=== PATIENT | female | born 1960 | race Caucasian/White ===

== ENCOUNTER → 2019-08-15 | Outpatient (CLI) | payer BC ==
[~2019-08-15] MED LIST: ALPR0.254 PO; ARIP5TAB13 PO; ASPI-630 PO; BIMA2.5D OP; BRIM5DRO2 OP; DULO60CA45 PO; ESTR1TAB15 PO; HYDR-3164 PO; IRBE1TAB5 PO; METF500T16 PO; MIRA25TA PO; NAPR1TAB21 PO; SIMV40TA18 PO
== END | disposition home or self-care (01) ==
LOC: LAB 13:50
PROVIDERS: ATTEND Obstetrics & Gynecology
DX: Z01.812 Encounter for preprocedural laboratory examination (principal); Z11.59 Encounter for screening for other viral diseases; Z88.2 Allergy status to sulfonamides; Z88.8 Allergy status to other drugs, medicaments and biological substances
CPT/HCPCS: 36415; 87635

== ENCOUNTER 2019-08-18 08:55 | Day surgery (SDC) | payer BC ==
[~2019-08-18 08:55] MED LIST changes: -HYDR-3164 PO; +HYDROmorphone 2 MG/ML VIAL IV PRN; +INSULIN LISPRO 100 UNIT/ML 3ML VIAL for OP,RR ONLY. SQ PRN; +IV RINGERS,LACTATED 1000ML 1,000 ML IV SCH; +MORPHINE SULFATE 2 MG/ML VIAL. IV PRN; +ONDANSETRON PF 4 MG/2 ML VIAL. IV PRN; +PROCHLORPERAZINE 10 MG/2 ML VIAL. IV PRN; +fentaNYL PF VIAL 100 MCG/2 ML VIAL IV PRN
[2019-08-18] MEDS ORDERED: PROPOFOL 10 MG/ML (20ML) VIAL. IV ONE (11:25)
[2019-08-18] MEDS ORDERED: DEXAMETHASONE SOD PHOS 4 MG/ML VIAL ONE (11:25)
[2019-08-18] MEDS ORDERED: fentaNYL PF VIAL 100 MCG/2 ML VIAL ONE (11:25)
[2019-08-18] MEDS ORDERED: ONDANSETRON PF 4 MG/2 ML VIAL. ONE (11:25)
[2019-08-18] MEDS ORDERED: MIDAZOLAM HCL/PF 2 MG/2 ML VIAL. ONE (11:25)
[2019-08-18] MEDS ORDERED: LIDOCAINE 2% PF 5 ML VIAL. ONE (11:25)
[2019-08-18] MEDS ORDERED: HYDROCORTISONE SOD SUCC/PF 100 MG/2 ML VIAL. ONE (11:26)
[2019-08-18] MEDS ORDERED: SEVOFLURANE 31 TO 60 MINUTES. IH ONE (11:55)
--- NOTE | 2019-08-18 12:03 | PDOC ---
BRIEF OPERATIVE NOTE Date: August 18, 2019 Pre-Op Diagnosis PMB with thickened endometrium Post-Op Diagnosis same plus endometrial polyp Procedure Performed h/s D&C with isabel clear system Surgeon Dr. Josie Avilez Anesthesiologist Dr. Palmer Anesthesia Type: General Blood Loss 5cc IV Fluid see anesthesia note Urine Output straight cath prior to procedure Specimens Obtained endometrial currettings Findings small polyp otherwise normal uterine cavity; 6.5-7cm and normal bilateral tubal ostia seen also Complications none Operative Note [id number] JOSIE AVILEZ MD August 18, 2019 12:03
[2019-08-18] MEDS ORDERED: MAG HYDROX/ALUMINUM HYD/SIMETH 30 ML ORAL.SUSP PO PRN (12:15)
[2019-08-18] MEDS ORDERED: 0.9 % SODIUM CHLORIDE 10 ML DISP.SYRIN. IV PRN (12:15)
[2019-08-18] MEDS ORDERED: NALOXONE 0.4 MG/ML VIAL. IV PRN (12:15)
[2019-08-18] MEDS ORDERED: HYDROcodone/APAP 5/325MG 1 TAB TABLET PO PRN (12:15)
[2019-08-18] MEDS ORDERED: diphenhydrAMINE HCL 25 MG CAPSULE PO PRN (12:15)
[2019-08-18] MEDS ORDERED: SIMETHICONE 80 MG TAB.CHEW PO PRN (12:15)
[2019-08-18] MEDS ORDERED: diphenhydrAMINE 50 MG/ML VIAL IV PRN (12:15)
[2019-08-18] MEDS ORDERED: CALCIUM CARBONATE 500 MG TAB.CHEW PO PRN (12:15)
--- NOTE | 2019-08-18 12:16 | CONS ---
DATE OF CONSULTATION: 08/18/2019 PREOPERATIVE DIAGNOSIS: Postmenopausal bleeding with a thickened endometrium on sonogram. POSTOPERATIVE DIAGNOSIS: Postmenopausal bleeding with a thickened endometrium on sonogram with an endometrial polyp. PROCEDURES PERFORMED: Hysteroscopy, D and C with TruClear fluid collection system. SURGEON: Anastasiya Avilez MD HUMAN RESOURCES CONSULTANT: OR personnel. ANESTHESIOLOGIST: Dr. Palmer. ANESTHESIA: General. ESTIMATED BLOOD LOSS: 5 mL. URINE OUTPUT: Straight cath prior to procedure. FLUIDS: Please see anesthesia notes. SPECIMEN OBTAINED: Endometrial curettings. FINDINGS: She had a uterus that sounded to 6.5-7 cm with a small endometrial polyp seen on the right side of the uterine cavity; otherwise, a normal bilateral tubal ostia seen and normal thin atrophic endometrium. COMPLICATIONS: None. DESCRIPTION OF PROCEDURE: This patient was taken to the operating room where general anesthesia was placed. The patient was placed in dorsal lithotomy position in Parvez stirrups. The patient's vagina was prepped and draped in the normal sterile fashion and a straight cath urine was done prior to my arrival. Upon my arrival, a timeout was performed. Once everyone agreed on the patient, the site, the procedure, a weighted speculum was placed in the patient's vagina. A single-tooth tenaculum was used to grasp the anterior lip of the cervix. The Hegar dilators were used to dilate up to an 8, she sounded to 6.5-7 cm. The TruClear clear scope had been primed. It was placed in with the above findings. The small shaver, the thin blade was placed in, window locked and the polyp was removed easily and then a small D and C was done just to make sure we had tissue. At the end, it was a small normal uterine cavity without any abnormalities and the procedure was ended. The scope was removed. The tenaculum was removed. There was no active bleeding. Speculum was removed and the procedure was ended. She is currently being awakened from anesthesia. ANASTASIYA AVILEZ MD DR: BRANDON/saniya JOB#: [id number] / [id number]
[2019-08-18] MEDS ORDERED: HYDR-3164 PO (12:26)
[2019-08-18 12:35] VITALS: BP 138/58
--- NOTE | 2019-08-19 09:57 | OP ---
DATE OF SURGERY: 08/18/2019 PREOPERATIVE DIAGNOSIS: Postmenopausal bleeding with a thickened endometrium on sonogram. POSTOPERATIVE DIAGNOSIS: Postmenopausal bleeding with a thickened endometrium on sonogram with an endometrial polyp. PROCEDURES PERFORMED: Hysteroscopy, D and C with TruClear fluid collection system. SURGEON: Anastasiya Avilez MD MEDICAL MASSAGE THERAPIST: OR personnel. ANESTHESIOLOGIST: Dr. Palmer. ANESTHESIA: General. ESTIMATED BLOOD LOSS: 5 mL. URINE OUTPUT: Straight cath prior to procedure. FLUIDS: Please see anesthesia notes. SPECIMEN OBTAINED: Endometrial curettings. FINDINGS: She had a uterus that sounded to 6.5-7 cm with a small endometrial polyp seen on the right side of the uterine cavity; otherwise, a normal bilateral tubal ostia seen and normal thin atrophic endometrium. COMPLICATIONS: None. DESCRIPTION OF PROCEDURE: This patient was taken to the operating room where general anesthesia was placed. The patient was placed in dorsal lithotomy position in Parvez stirrups. The patient's vagina was prepped and draped in the normal sterile fashion and a straight cath urine was done prior to my arrival. Upon my arrival, a timeout was performed. Once everyone agreed on the patient, the site, the procedure, a weighted speculum was placed in the patient's vagina. A single-tooth tenaculum was used to grasp the anterior lip of the cervix. The Hegar dilators were used to dilate up to an 8, she sounded to 6.5-7 cm. The TruClear clear scope had been primed. It was placed in with the above findings. The small shaver, the thin blade was placed in, window locked and the polyp was removed easily and then a small D and C was done just to make sure we had tissue. At the end, it was a small normal uterine cavity without any abnormalities and the procedure was ended. The scope was removed. The tenaculum was removed. There was no active bleeding. Speculum was removed and the procedure was ended. She is currently being awakened from anesthesia. ANASTASIYA AVILEZ MD DR: BRANDON/saniya JOB#: [id number] / [id number]
--- NOTE | 2019-08-19 17:06 | PATHOLOGY ---
[facility] Accession Number: [id number] . 01 Material submitted: . endometrium - ENDOMETRIAL CURETTINGS . 01 Clinical history: . PMB with thickened endometrium . 02 Diagnosis: Endometrial curettings: - Endometrial polyp with recent stromal hemorrhage. - Atrophic endometrium. (JPM:rodrigo; 08/19/2019) QMS 08/19/2019 0927 Local . 02 Comment: There is no atypia or evidence of malignancy. (JPM:rodrigo; 08/19/2019) . 02 Electronically signed: . Jermaine Joseph MD, Pathologist NPI- [id number] . 01 Gross description: . The specimen is received in formalin, labeled "Zahida Patricio, endometrial curettings" and consists of hemorrhagic pink-hudson tissue measuring 1.1 x 0.8 x 0.2 cm which is entirely submitted in A1. (SDY; 08/18/2019) SYU/SYU 08/18/2019 1510 Local . 02 Pathologist provided ICD-10: N84.0, N85.8 . 02 CPT . 805188 Specimen Comment: A courtesy copy of this report has been sent to [phone] Specimen Comment: 0827 Specimen Comment: Report sent to / DR THOMAS Performed at: 01 [facility] [address], [place] [id number] MD Pedrito Valdovinos MD Phone: [phone] Performed at: 02 [facility] [address] [place], [place] [id number] MD Jermaine Joseph MD Phone: [phone]
== END 2019-08-18 13:00 | disposition home or self-care (01) ==
LOC: SURG 08:55
PROVIDERS: ATTEND Obstetrics & Gynecology
DX: N95.0 Postmenopausal bleeding (principal); N84.0 Polyp of corpus uteri; I10 Essential (primary) hypertension; E78.00 Pure hypercholesterolemia, unspecified; F17.210 Nicotine dependence, cigarettes, uncomplicated; E11.9 Type 2 diabetes mellitus without complications; F41.9 Anxiety disorder, unspecified; F32.9 Major depressive disorder, single episode, unspecified; Z87.39 Personal history of other diseases of the musculoskeletal system and connective tissue; Z98.51 Tubal ligation status; Z79.84 Long term (current) use of oral hypoglycemic drugs
CPT/HCPCS: 58558; 82962; J1100; J1815; J2250; J2405; J2704; J3010; J3490; J1720

== ENCOUNTER → 2019-09-06 | Outpatient (CLI) | payer BC ==
[2019-08-18 12:35] VITALS: BP 138/58
[~2019-09-06] MED LIST changes: +ESTR-113 PO; -ESTR1TAB15 PO; +HYDR-3164 PO; -HYDROmorphone 2 MG/ML VIAL IV PRN; -INSULIN LISPRO 100 UNIT/ML 3ML VIAL for OP,RR ONLY. SQ PRN; -IV RINGERS,LACTATED 1000ML 1,000 ML IV SCH; -MORPHINE SULFATE 2 MG/ML VIAL. IV PRN; -ONDANSETRON PF 4 MG/2 ML VIAL. IV PRN; -PROCHLORPERAZINE 10 MG/2 ML VIAL. IV PRN; -fentaNYL PF VIAL 100 MCG/2 ML VIAL IV PRN
--- NOTE | 2019-09-06 16:57 | RAD ---
Examination: 1. Single view lumbar spine. 2. Flexion and extension views lumbar spine. INDICATION: Spondylolisthesis and back pain with a history of fall 2015 years ago. COMPARISON: None currently available. FINDINGS: The single neutral lateral view of the lumbar spine shows grade 1 anterolisthesis of L4 on L5 assuming 5 lumbar type vertebrae with L5 being the inferior most lumbar type vertebra. This anterolisthesis measures approximately 8 mm. The vertebral body heights are preserved and the bones show no fracture or aggressive appearing osseous lesions. There are facet degenerative changes resulting in at least moderate foraminal narrowing at L4-L5 and at L5-S1. Disc narrowing at L4-L5 is also appreciated with relatively minimal disc space narrowing at L2-L3 and at L3-L4. The soft tissues show arterial calcifications in abdominal aorta. The visualized hips are unremarkable. Soft tissues show no additional unexpected findings. The lateral flexion and extension views of the lumbar spine show no significant change in the degree of anterolisthesis at the presumed L4-L5 level. IMPRESSION: Grade 1 anterolisthesis of L4 on L5 (assuming 5 lumbar type vertebrae-this merits confirmation with cross-sectional imaging preferably by CT). No abnormal motion with flexion or extension. Electronically signed by: Danilo Villatoro MD (09/06/2019 4:55 PM) [id number]
== END | disposition home or self-care (01) ==
LOC: RAD 14:09
PROVIDERS: ATTEND Neurological Surgery
DX: M43.16 Spondylolisthesis, lumbar region (principal); I70.0 Atherosclerosis of aorta; M48.061 Spinal stenosis, lumbar region without neurogenic claudication; M43.8X6 Other specified deforming dorsopathies, lumbar region
CPT/HCPCS: 72020; 72120

== ENCOUNTER → 2019-09-28 | Outpatient (CLI) | payer BC ==
[~2019-09-28] MED LIST changes: +DOCU-153 PO; +HYDR-2761 PO; +METH750T2 PO; +OXYC5TAB4 PO
[2019-09-28 13:30] LABS: BASO # 0.1 x10^3/uL (0.0-0.2); BASO % 1 % (0-3); EOS # 0.1 x10^3/uL (0.0-0.7); EOS % 1 % (0-3); HEMATOCRIT 36.9 % (36.0-47.0); HEMOGLOBIN 12.7 g/dL (12.0-15.5); LYMPH % 30 % (24-48); MEAN CORPUSCULAR HEMOGLOBIN 32 pg (25-35); MEAN CORPUSCULAR HGB CONC 34 g/dL (31-37); MEAN CORPUSCULAR VOLUME 93 fL (79-100); MONO # 0.8 x10^3/uL (0.0-1.1); MONO % 8 % (0-9); NEUT # 6.1 x10^3/uL (1.8-7.7); NEUT % 60 % (31-73); PLATELET COUNT 253 x10^3/uL (140-400); RED BLOOD COUNT 3.95 x10^6/uL (3.50-5.40); RED CELL DISTRIBUTION WIDTH 13.4 % (11.5-14.5); WHITE BLOOD COUNT 10.2 x10^3/uL (4.0-11.0)
[2019-09-28 13:51] LABS: ALBUMIN 3.5 g/dL (3.4-5.0); ALBUMIN/GLOBULIN RATIO 1.1 (1.0-1.7); CALCIUM 8.9 mg/dL (8.5-10.1); CREATININE 1.1 mg/dL (0.6-1.0); GFR 50.7; POTASSIUM 3.9 mmol/L (3.5-5.1); TOTAL BILIRUBIN 0.1 mg/dL (0.2-1.0); TOTAL PROTEIN 6.7 g/dL (6.4-8.2)
--- NOTE | 2019-09-28 13:51 | EKG ---
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
[2019-09-29 00:07] LABS: HEMOGLOBIN A1C 5.9 % (4.8-5.6)
== END | disposition home or self-care (01) ==
LOC: SURGPAT 13:21
PROVIDERS: ATTEND Neurological Surgery
DX: Z01.818 Encounter for other preprocedural examination (principal); Z11.59 Encounter for screening for other viral diseases; R94.31 Abnormal electrocardiogram [ECG] [EKG]; M51.17 Intervertebral disc disorders with radiculopathy, lumbosacral region; M71.30 Other bursal cyst, unspecified site
CPT/HCPCS: 36415; 80053; 83036; 85025; 87641; 93005; C9803; U0003

== ENCOUNTER 2019-10-05 10:41 | Observation (INO) | payer BC ==
--- NOTE | 2019-10-04 18:49 | PREOP HP ---
DATE OF SERVICE: 10/05/2019. DATE OF SURGERY: 10/05/2019. HISTORY OF PRESENT ILLNESS: The patient is a pleasant 59-year-old who has difficulty with back pain as well as pain which radiates into her right posterior lateral thigh. She says occasionally her left leg is affected. Standing creates the problem. She obtains relief by sitting or lying down. The problem has been present for about 15 years, but has worsened significantly over the last several months. Walking and standing increase the pain and it can reach a 7 to an 8/10. Sitting helps. She takes Naprosyn. She has had several rounds of epidural steroid injections without long-term benefit. She has had physical therapy for a couple of years ago and she said that it did help, but only for a short time. PAST MEDICAL HISTORY: Arthritis, hypertension, tumors as well as diabetes. PAST SURGICAL HISTORY: Had D and C in 2019. FAMILY HISTORY: Diabetes, heart disease, hypertension, migraine headache. SOCIAL HISTORY: She is retired. . Denies substance abuse. Smokes. Drinks 1-2 times per year. Drinks coffee and soda daily. ALLERGIES: KEFLEX, SULFA, ERYTHROMYCIN, AND CODEINE. CURRENT MEDICATIONS: Naproxen, aripiprazole, metformin, irbesartan, duloxetine, simvastatin, estradiol, Myrbetriq, Lumigan, Combigan and aspirin. REVIEW OF SYSTEMS: A 12-point review of systems was obtained and is noncontributory except for that mentioned above. PHYSICAL EXAMINATION: NEUROSURGERY EXAMINATION: GENERAL APPEARANCE: Alert, pleasant, no acute distress. HEAD: Normocephalic and atraumatic. SKIN: Warm and dry. MUSCULOSKELETAL: Lumbar paraspinal muscle bulk is normal, restricted range of motion of lumbar spine, [id number] tenderness of the lower lumbar spine with palpation and normal range of motion of the lower extremities bilaterally. EXTREMITIES: No clubbing, cyanosis or edema. NEUROLOGIC: Alert and oriented x 3. Normal recent and remote memory. Strength 5/5 in bilateral lower extremities. Sensory intact to light touch in bilateral lower extremities except for decrease in the right lateral thigh. Reflexes are trace and symmetric in lower extremities bilaterally. Negative straight leg raising bilaterally. Slightly forward stooped gait. IMAGING: I reviewed a lumbar MRI scan. On that study, there were a number of abnormalities. There is a central and right-sided disc herniation at L5-S1. This is associated with moderate right-sided lateral recess and foraminal narrowing. There is a grade 1 anterolisthesis at L5-S1. Also, behind the body of S1 on the right side, there appears to be a synovial cyst, which is protruding into the canal. ASSESSMENT/PLAN: The patient has fairly severe right lumbar radiculopathy. I had lumbar flexion and extension films performed. There was no motion and I recommended microdiscectomy with removal of synovial cyst on the right at L5-S1. I discussed all this with her including the technique, risks, and expected postoperative course, she understands. We will make the arrangements. MATEUS CHOW MD DR: KEVIN/saniya JOB#: [id number] / [id number] JARAD
[~2019-10-05] VITALS: Ht 165.1 cm; Wt 74.8 kg
[2019-10-05] VITALS (9 sets, daily range): BP systolic 119–169; BP diastolic 56–80
[~2019-10-05 10:41] MED LIST changes: +BACITRACIN 50,000 UNIT in IV NORMAL SALINE 1000ML BAG 1,000 ML IRR ONE; +BUPIVACAINE-EPI 0.5%-1:200000 MPF 30 ML VIAL. ONE; +DEXAMETHASONE SOD PHOS 20 MG/5 ML VIAL. ONE; -DOCU-153 PO; +GELATIN SPONGE SIZE 100. ONE; +GLYCOPYRROLATE 1 MG/5 ML VIAL. ONE; -HYDR-2761 PO; +IV RINGERS,LACTATED 1000ML 1,000 ML IV SCH; +KETOROLAC 60 MG/2 ML VIAL. ONE; +LIDOCAINE 1% PF 2 ML VIAL. ID PRN; +LIDOCAINE 2% PF 5 ML VIAL. ONE; -METH750T2 PO; +ONDANSETRON PF 4 MG/2 ML VIAL. IV PRN; +ONDANSETRON PF 4 MG/2 ML VIAL. ONE; -OXYC5TAB4 PO; +PHENYLEPHRINE in 0.9% NACL PF 1 MG/10 ML SYRINGE. IV ONE; +PROCHLORPERAZINE 10 MG/2 ML VIAL. IV PRN; +PROPOFOL 10 MG/ML (20ML) VIAL. IV ONE; +PROPOFOL 50 ML IV ONE; +REMIFENTANIL 2 MG VIAL. IV ONE; +ROCURONIUM 50 MG/5 ML VIAL. ONE; +SUCCINYLCHOLINE 200 MG/10 ML VIAL. ONE; +THROMBIN TOPICAL 20,000 UNIT SPRAY.SYRN KIT TP ONE; +ePHEDrine PF IN SALINE 50 MG/10 ML SYRINGE. IV ONE; +fentaNYL PF VIAL 100 MCG/2 ML VIAL IV PRN; +fentaNYL PF VIAL 100 MCG/2 ML VIAL ONE
[2019-10-05] MEDS ORDERED: INSULIN LISPRO 100 UNIT/ML 3ML VIAL for OP,RR ONLY. SQ PRN (10:45)
[2019-10-05] MEDS ORDERED: VANCOMYCIN 1GM IVPB FOR OMNI 250 ML ONE (10:46)
[2019-10-05] MEDS ORDERED: BUPIVACAINE-EPI 0.5%-1:200000 MPF 30 ML VIAL. INJ ONE (13:29)
[2019-10-05] MEDS ORDERED: KETOROLAC 60 MG/2 ML VIAL. INJ ONE (13:29)
[2019-10-05] MEDS ORDERED: THROMBIN TOPICAL 20,000 UNIT SPRAY.SYRN KIT TP ONE (13:29)
[2019-10-05] MEDS ORDERED: GELATIN SPONGE SIZE 100. TP ONE (13:29)
[2019-10-05] MEDS ORDERED: PHENYLEPHRINE 10 MG/ML VIAL. ONE ×2 (13:54)
[2019-10-05] MEDS ORDERED: PROPOFOL 50 ML IV ONE (15:06)
[2019-10-05] MEDS ORDERED: DESFLURANE > 120 MINUTES IH ONE (16:10)
[2019-10-05] MEDS ORDERED: ePHEDrine PF IN SALINE 50 MG/10 ML SYRINGE. IV ONE (16:13)
[2019-10-05] MEDS ORDERED: PHENYLEPHRINE in 0.9% NACL PF 1 MG/10 ML SYRINGE. IV ONE (16:13)
[2019-10-05] MEDS ORDERED: MAG HYDROX/ALUMINUM HYD/SIMETH 30 ML ORAL.SUSP PO PRN (16:15)
[2019-10-05] MEDS ORDERED: diphenhydrAMINE HCL 25 MG CAPSULE PO PRN (16:15)
[2019-10-05] MEDS ORDERED: 0.9 % SODIUM CHLORIDE 10 ML DISP.SYRIN. IV PRN (16:15)
[2019-10-05] MEDS ORDERED: ACETAMINOPHEN 325 MG TABLET. PO PRN (16:15)
[2019-10-05] MEDS ORDERED: METHOCARBAMOL 750 MG TABLET PO PRN (16:15)
[2019-10-05] MEDS ORDERED: NALOXONE 0.4 MG/ML VIAL. IV PRN (16:15)
[2019-10-05] MEDS: fentaNYL PF VIAL 100 MCG/2 ML VIAL IV PRN ×3 (16:43→20:39)
[2019-10-05] MEDS: POTASSIUM CL 20MEQ D5-0.45NACL 1,000 ML IV SCH (17:00)
--- NOTE | 2019-10-05 17:10 | NUR ---
Arrived to unit by w/c from PACU. Alert and oriented x's 4. No c/o at this time. Dressing on lower back d/i. VS stable. Able to move all extremities without difficulty. Pedal pulses + bilaterally. IV is s/l on right hand. PREET's and MAHNAZ's on bilaterally. Oriented to room and controls. Side rails up x's 2 with call light in reach. Juice and jello given. Cont. monitor.
--- NOTE | 2019-10-05 18:44 | OP ---
DATE OF SURGERY: 10/05/2019 PREOPERATIVE DIAGNOSES: Spondylolisthesis, L5-S1; right herniated disc, L5-S1; synovial cyst behind the inferior right lamina of S1. POSTOPERATIVE DIAGNOSES: Spondylolisthesis, L5-S1; right herniated disc, L5-S1; synovial cyst behind the inferior right lamina of S1. OPERATION PERFORMED: Lumbar laminectomy, L5-S1; microdiscectomy L5-S1 combined with transfacet decompression, right L5-S1 with removal of foraminal disc herniation; decompression of the right L5 root; laminectomy S1 with microscopic removal of synovial cyst. The operation was done with EMG monitoring, SSEP monitoring, fluoroscopy, microscopic dissection. SURGEON: Robby Chow M.D. FOOD CONSULTANT: JAYLEEN Kilgore assisted with the surgery. She assisted with the exposure, the laminectomy, diskectomy, transforaminal decompression as well as removal of synovial cyst. OPERATIVE INDICATIONS: The patient is a pleasant 59-year-old who developed intractable back and right leg pain which failed conservative management. She does have a spondylolisthesis of L5 on S1, but with flexion and extension x-rays, I did not see significant motion. I recommended lumbar microsurgery to decompress the dura and nerve root at this level. She understood and wished to go ahead. DESCRIPTION OF PROCEDURE: Following general endotracheal anesthesia, the patient was positioned prone on the Arun table. Lumbar region prepped and draped in standard fashion. PREET hose and AV impulse boots were applied for DVT prophylaxis. The microscope was draped. Fluoroscopy was draped and brought into the field. Monitoring was established. Vancomycin 1 gram was given less than 1 hour prior to initiation of the surgery. Using fluoroscopic guidance, incision was made from inferior S1 to superior L5. I dissected down through skin and subcutaneous tissue, reflected the paraspinal muscles and placed self-retaining retractors. I brought in the microscope and drilled the very thickened lamina, superior portion of S1, which continued to L5 and performed a generous hemilaminotomy and then performed a foraminotomy to decompress the S1 root. I worked gently up to the level of disc. I trimmed away very thickened ligamentum flavum and then visualized the S1 root as well as the dura. There was disc bulging, which was extensive and extended laterally. I carried my exposure farther laterally creating a transfacet exposure and exposing the L5 root. The L5 root was lifted and compressed by foraminal disc and I incised the ligament annulus and performed discectomy with pituitary rongeurs and as I worked, the entire region became well decompressed. Following this, then I explored carefully. There were no retained fragments, the roots were free. I then began trimming S1 and working inferiorly to encompass a large synovial cyst. I removed the bone across the midline and back around to fully circumscribe the cyst which I then gently dissected off of the dura from which there was scar. After peeling this away, I fully decompressed the entire region and obtained perfect hemostasis with a combination of bipolar cautery and bone wax. I irrigated copiously at this point. Specimen was submitted. I removed the retractor, obtained hemostasis in the muscle, irrigated copiously. I closed the wound in layers with absorbable suture. The skin closed with 4-0 subcuticular stitch. The surgery went very well. ROBBY CHOW MD DR: KEVIN/saniya JOB#: [id number] / [id number] JARAD
[2019-10-05] MEDS: fentaNYL PF VIAL 100 MCG/2 ML VIAL IVP PRN (20:29)
[2019-10-05] MEDS: PANTOPRAZOLE 40 MG TABLET.DR. PO SCH (20:31)
[2019-10-05] MEDS: NAPROXEN 500 MG TABLET PO SCH (20:31)
[2019-10-05] MEDS: DOCUSATE SODIUM 100 MG CAPSULE. PO SCH (20:31)
[2019-10-05] MEDS: TIMOLOL 0.5% OPHTH SOLUTION 5ML BOTTLE. OU SCH (20:32)
[2019-10-05] MEDS: BRIMONIDINE 0.2% OPHTH SOLUTION 5ML BOTTLE. OU SCH (20:35)
[2019-10-05] MEDS ORDERED: SIMVASTATIN 40 MG TABLET. PO SCH (21:00)
[2019-10-05] MEDS ORDERED: NON FORMULARY ITEM (Brimonidine Tartrate/Timolol (Combigan Eye Drops) 5 ML) OP SCH (21:00)
[2019-10-05] MEDS ORDERED: ESOMEPRAZOLE MAG PO SCH (21:00)
[2019-10-05] MEDS ORDERED: NAPROXEN PO SCH (21:00)
[2019-10-05] MEDS ORDERED: LATANOPROST 0.005% OPHTH SOLUTION 2.5ML BOTTLE. OU SCH (21:00)
[2019-10-06] MEDS: fentaNYL PF VIAL 100 MCG/2 ML VIAL IVP PRN ×2 (03:22→07:19)
[2019-10-06 03:27] VITALS: BP 128/51
[2019-10-06] MEDS ORDERED: VANCOMYCIN 1GM IVPB FOR OMNI 250 ML IV PRN (06:00)
[2019-10-06] MEDS: POTASSIUM CL 20MEQ D5-0.45NACL 1,000 ML IV SCH (06:20)
[2019-10-06 07:15] VITALS: BP 130/53
[2019-10-06] MEDS: NAPROXEN 500 MG TABLET PO SCH (08:33)
[2019-10-06] MEDS: PANTOPRAZOLE 40 MG TABLET.DR. PO SCH (08:33)
[2019-10-06] MEDS: DOCUSATE SODIUM 100 MG CAPSULE. PO SCH (08:34)
[2019-10-06] MEDS: BRIMONIDINE 0.2% OPHTH SOLUTION 5ML BOTTLE. OU SCH (08:36)
[2019-10-06] MEDS: TIMOLOL 0.5% OPHTH SOLUTION 5ML BOTTLE. OU SCH (08:36)
[2019-10-06] MEDS ORDERED: DULoxetine HCL 30 MG CAPSULE.DR PO SCH (09:00)
[2019-10-06] MEDS ORDERED: ASPIRIN CHEWABLE 81 MG TABLET. PO SCH (09:00)
[2019-10-06] MEDS ORDERED: IRBESARTAN PO SCH (09:00)
[2019-10-06] MEDS ORDERED: ESTRADIOL 1 MG TABLET. PO SCH (09:00)
[2019-10-06] MEDS ORDERED: HYDROCHLOROTHIAZIDE PO SCH (09:00)
[2019-10-06] MEDS ORDERED: LOSARTAN POTASSIUM 50 MG TABLET. PO SCH (09:00)
[2019-10-06] MEDS ORDERED: NON FORMULARY ITEM (Mirabegron (Myrbetriq) 25 MG) PO SCH (09:00)
[2019-10-06] MEDS ORDERED: hydroCHLOROthiazide 12.5 MG CAPSULE PO SCH (09:00)
[2019-10-06] MEDS ORDERED: [UNRECOGNIZED DRUG - OTHER] PO SCH (09:00)
[2019-10-06] MEDS ORDERED: HYDROcodone/APAP 5/325MG 1 TAB TABLET PO PRN (10:00)
--- NOTE | 2019-10-06 10:00 | NUR ---
Ambulating in room with steady gait. Still has some discomfort at incision site. Orders for hydrocodone.
[2019-10-06 11:02] VITALS: BP 148/56
[2019-10-06] MEDS ORDERED: HYDR-2761 PO (11:55)
[2019-10-06] MEDS ORDERED: DOCU-153 PO (11:55)
[2019-10-06] MEDS ORDERED: METH750T2 PO (11:55)
--- NOTE | 2019-10-06 11:56 | DISCH ---
DISCHARGE INSTRUCTIONS Condition on Discharge Condition on Discharge: Stable Activity After Discharge Activity Instructions for Disc: Activity as tolerated, Avoid exertion Other activity instructions: no driving for a week Bathing Instructions: Shower-keep dressing dry, No Tub Bath until see Lifting Instructions after Dis: No heavy lifting, No pulling or pushing, Do not lift >10 pounds Diet after Discharge Additional Diet Restrictions: resume home diet Wound Incision Care Wound/Incision Care: Ice to area for comfort Other wound/incision instructi: may remove dressing in 48 hours if dry, no soaking Contacting the after DC Call your doctor for: Concerns you may have Follow-Up Follow up with: Dr. Chow's nurse in 2 weeks [phone] MATEUS CHOW MD Oct 06, 2019 11:56
--- NOTE | 2019-10-06 12:19 | NUR ---
Discharge instructions given with prescriptions. Answered questions and concerns. Verbalized understanding. Pt discharged home accompanied by spouse. Escorted to front door by w/c.
--- NOTE | 2019-10-06 14:34 | DS ---
DATE OF DISCHARGE: 10/06/2019 DATE OF SURGERY: 10/05/2019. DISCHARGE DIAGNOSES: Spondylolisthesis, L5-S1, right; herniated disk, L5-S1, right; synovial cyst L5-S1, right. OPERATION PERFORMED: Lumbar laminectomy L5-S1 with microdiskectomy combined with transfacet decompression, right L5-S1 removal of foraminal disk herniation, decompression of the right L5 root, laminectomy S1 with microscopic removal of synovial cyst. HISTORY OF PRESENT ILLNESS: The patient is a pleasant 59-year-old woman who developed intractable back and right leg pain which failed conservative management. She had a spondylolisthesis of L5-S1, but with flexion and extension x-rays, I did not see significant motion. I recommended lumbar microsurgery to decompress the dura and nerve root at this level. I spoke with her about the surgery and the risk and she wished to proceed. HOSPITAL COURSE: She was admitted to the floor postoperatively where she has done well. She has been up ambulating in the room and in the halls. Physical therapy was initiated and instruction was given to her regarding her activities. Her pain is well controlled with medication and she is in good condition to discharge home. DISCHARGE MEDICATIONS: She will resume her medications per the MRAD. DISCHARGE INSTRUCTIONS: She was instructed regarding incision care, activity restrictions and expectations for the next several weeks. She will follow up with us in 2 weeks. She understands to call with any questions or concerns. MATEUS CHOW MD DR: ISAI/saniya JOB#: [id number] / [id number]
--- NOTE | 2019-10-10 17:06 | PATHOLOGY ---
[facility] Accession Number: [id number] . 01 Material submitted: . PART A: vertebral column - LUMBAR DISC AND DECOMPRESSION PART B: vertebral column - SYNOVIAL CYST . 01 Clinical history: . Lumbar herniated disc with radiculopathy, synovial cyst . 02 Diagnosis: A. Segments of fibrocartilaginous, adipose, and synovial tissue and bone, lumbar disc and decompression: - Degenerative changes of fibrocartilaginous tissue. - Segments of synovial tissue consistent with synovial cyst. . B. Segments of fibrocartilaginous, fibroadipose, and synovial tissue and bone, synovial cyst: - Degenerative changes of fibrocartilaginous tissue. - Synovial tissue consistent with synovial cyst. (JPM:[facility] 10/10/2019) [facility] 10/10/2019 1633 Local . 02 Comment: There is no evidence of an acute inflammatory process or malignancy. ([facility] 10/10/2019) . 02 Electronically signed: . Jermaine Joseph MD, Pathologist NPI- [id number] . 01 Gross description: . A. The specimen is received in formalin labeled "Arnold, Zahida, lumbar disc and decompression" and consists of fragments of hudson-steiner tissue admixed with fragments of bone measuring 4.2 x 1.9 x 0.3 cm in aggregate. Safety Person sections are submitted in A1 following decalcification. . B. The specimen is received in formalin labeled "Arnold, Zahida, synovial cyst" and consists of 2 segments of alex-hudson gritty tissue measuring 3.3 x 2.1 x 0.4 cm aggregate. They are serially sectioned and entirely submitted in B1-B2 following decalcification. (ABHIJIT; 10/06/2019) JFQ/JFMichel 10/06/2019 1623 Local . 02 Pathologist provided ICD-10: M71.30, M51.26, M54.10 . 02 CPT . 922423, 421728, 266285, 974982 Specimen Comment: A courtesy copy of this report has been sent to [phone] Specimen Comment: 0827 Specimen Comment: Report sent to / DR THOMAS Performed at: 01 [facility] [address], [place] [id number] MD Pedrito Valdovinos MD Phone: [phone] Performed at: 02 [facility] [address] [place], [place] [id number] MD Jermaine Joseph MD Phone: [phone]
== END 2019-10-06 12:19 | disposition home or self-care (01) ==
LOC: SURG 10:41 → 4 NORTH 16:20
PROVIDERS: ADMIT Neurological Surgery; ATTEND Neurological Surgery
DX: M54.17 Radiculopathy, lumbosacral region (principal); M51.26 Other intervertebral disc displacement, lumbar region; M43.17 Spondylolisthesis, lumbosacral region; M43.16 Spondylolisthesis, lumbar region; E11.9 Type 2 diabetes mellitus without complications; I10 Essential (primary) hypertension; M71.38 Other bursal cyst, other site; F17.200 Nicotine dependence, unspecified, uncomplicated
CPT/HCPCS: 63012; 76000; 82962; 88304; 88311; 96374; 96376; 97161; 97530; 99406; A7015; G0378; G0379; J0330; J0690; J1100; J1885; J2370; J2405; J2704; J3010; J3370; J3490; J7030; J7120

== ENCOUNTER → 2019-10-12 | Outpatient (CLI) | payer BC ==
[2019-10-06 11:02] VITALS: BP 148/56
[~2019-10-12] MED LIST changes: -BACITRACIN 50,000 UNIT in IV NORMAL SALINE 1000ML BAG 1,000 ML IRR ONE; -BUPIVACAINE-EPI 0.5%-1:200000 MPF 30 ML VIAL. ONE; -DEXAMETHASONE SOD PHOS 20 MG/5 ML VIAL. ONE; +DOCU-153 PO; -GELATIN SPONGE SIZE 100. ONE; -GLYCOPYRROLATE 1 MG/5 ML VIAL. ONE; +HYDR-2761 PO; -IV RINGERS,LACTATED 1000ML 1,000 ML IV SCH; -KETOROLAC 60 MG/2 ML VIAL. ONE; -LIDOCAINE 1% PF 2 ML VIAL. ID PRN; -LIDOCAINE 2% PF 5 ML VIAL. ONE; +METH750T2 PO; -ONDANSETRON PF 4 MG/2 ML VIAL. IV PRN; -ONDANSETRON PF 4 MG/2 ML VIAL. ONE; -PHENYLEPHRINE in 0.9% NACL PF 1 MG/10 ML SYRINGE. IV ONE; -PROCHLORPERAZINE 10 MG/2 ML VIAL. IV PRN; -PROPOFOL 10 MG/ML (20ML) VIAL. IV ONE; -PROPOFOL 50 ML IV ONE; -REMIFENTANIL 2 MG VIAL. IV ONE; -ROCURONIUM 50 MG/5 ML VIAL. ONE; -SUCCINYLCHOLINE 200 MG/10 ML VIAL. ONE; -THROMBIN TOPICAL 20,000 UNIT SPRAY.SYRN KIT TP ONE; -ePHEDrine PF IN SALINE 50 MG/10 ML SYRINGE. IV ONE; -fentaNYL PF VIAL 100 MCG/2 ML VIAL IV PRN; -fentaNYL PF VIAL 100 MCG/2 ML VIAL ONE
--- NOTE | 2019-10-12 15:47 | RAD ---
LUMBAR SPINE 2-3V, LUMBAR SPINE FLEX/EXTI ONLY History: Spondylolisthesis Comparison: September 06, 2019 Lumbar spine: Findings: 3 views of the lumbar spine are submitted. There again appears to be transitional anatomy. Based on visualization of most fully formed inferior bilateral ribs considered T12 and assumption of 5 lumbar type vertebral bodies, there is grade 1 anterior spondylolisthesis at what is considered L5-S1 (previously considered L4-5). There is moderate L5-S1 degenerative disc disease. There is partially formed intervertebral disc space at what is considered S1-S2. There is inferior facet degenerative change although there is some lucency in the region of the L5 pars interarticularis suspicious for spondylolysis. Lumbar vertebral body stature is maintained. There is atherosclerotic calcification of the abdominal aorta. Impression: 1. There is transitional anatomy of the lumbar spine as described. There is grade 1 anterior spondylolisthesis at what is considered L5-S1 (previously considered L4-5). There is L5-S1 degenerative disc disease. Flexion and extension radiographs FINDINGS: Single flexion and extension lateral radiographs of the lumbar spine are submitted. There is again transitional anatomy of the lumbar spine, grade 1 anterior spondylolisthesis at what is considered L5-S1 fairly similar with flexion and extension. There is inferior lumbar facet degenerative change although there is suspected L5 spondylolysis poorly characterized on this exam. IMPRESSION: 1.There is transitional anatomy, grade 1 anterior spondylolisthesis at what is considered L5-S1 (previously considered L4-5). There is probable L5 spondylolysis although poorly characterized on this exam. There is L5-S1 degenerative disc disease. Electronically signed by: Sim Rodriguez MD (10/12/2019 3:44 PM) [facility]
== END | disposition home or self-care (01) ==
LOC: RAD 13:40
PROVIDERS: ATTEND Neurological Surgery
DX: M43.17 Spondylolisthesis, lumbosacral region (principal); M51.37 Other intervertebral disc degeneration, lumbosacral region; I70.0 Atherosclerosis of aorta
CPT/HCPCS: 72100; 72120

== ENCOUNTER 2019-10-24 17:13 | Inpatient (IN) | payer BC ==
[~2019-10-24] VITALS: Ht 160 cm; Wt 77.9 kg
[~2019-10-24 17:13] MED LIST changes: -OXYC5TAB4 PO
[2019-10-24 17:45] VITALS: BP 126/54
[2019-10-24] MEDS ORDERED: 0.9 % SODIUM CHLORIDE 10 ML DISP.SYRIN. IV PRN (18:00)
[2019-10-24] MEDS ORDERED: diphenhydrAMINE HCL 25 MG CAPSULE PO PRN (18:00)
[2019-10-24] MEDS ORDERED: NALOXONE 0.4 MG/ML VIAL. IV PRN (18:00)
[2019-10-24] MEDS ORDERED: ACETAMINOPHEN 325 MG TABLET. PO PRN (18:00)
[2019-10-24] MEDS ORDERED: MAG HYDROX/ALUMINUM HYD/SIMETH 30 ML ORAL.SUSP PO PRN (18:00)
[2019-10-24] MEDS ORDERED: oxyCODONE IR 5 MG TABLET PO PRN (18:15)
[2019-10-24] MEDS: fentaNYL PF VIAL 100 MCG/2 ML VIAL IVP PRN ×2 (18:33→22:55)
[2019-10-24 19:45] VITALS: BP 137/40
[2019-10-24] MEDS: LATANOPROST 0.005% OPHTH SOLUTION 2.5ML BOTTLE. OU SCH (21:00)
[2019-10-24] MEDS ORDERED: DOCUSATE SODIUM 100 MG CAPSULE. PO SCH (21:00)
[2019-10-24] MEDS ORDERED: NON FORMULARY ITEM (Brimonidine Tartrate/Timolol (Combigan Eye Drops) 5 ML) OP SCH (21:00)
[2019-10-24] MEDS: SIMVASTATIN 40 MG TABLET. PO SCH (21:01)
[2019-10-24] MEDS: DOCUSATE SODIUM 100 MG CAPSULE. PO SCH (21:01)
[2019-10-24] MEDS: oxyCODONE IR 5 MG TABLET PO PRN (21:01)
[2019-10-24] MEDS: POTASSIUM CL 20MEQ D5-0.45NACL 1,000 ML IV SCH (21:02)
[2019-10-24 21:04] LABS: BASO # 0.1 x10^3/uL (0.0-0.2); BASO % 1 % (0-3); EOS # 0.2 x10^3/uL (0.0-0.7); EOS % 1 % (0-3); HEMATOCRIT 33.9 % (36.0-47.0); HEMOGLOBIN 11.9 g/dL (12.0-15.5); LYMPH % 16 % (24-48); MEAN CORPUSCULAR HEMOGLOBIN 32 pg (25-35); MEAN CORPUSCULAR HGB CONC 35 g/dL (31-37); MEAN CORPUSCULAR VOLUME 92 fL (79-100); MONO # 1.4 x10^3/uL (0.0-1.1); MONO % 12 % (0-9); NEUT # 8.7 x10^3/uL (1.8-7.7); NEUT % 71 % (31-73); PLATELET COUNT 264 x10^3/uL (140-400); RED BLOOD COUNT 3.68 x10^6/uL (3.50-5.40); RED CELL DISTRIBUTION WIDTH 13.4 % (11.5-14.5); WHITE BLOOD COUNT 12.3 x10^3/uL (4.0-11.0)
[2019-10-24 21:16] LABS: CALCIUM 8.8 mg/dL (8.5-10.1); GFR 56.6; POTASSIUM 3.4 mmol/L (3.5-5.1)
[2019-10-24 22:40] VITALS: BP 141/69
[2019-10-25] VITALS (10 sets, daily range): BP systolic 136–159; BP diastolic 61–84
[2019-10-25] MEDS: fentaNYL PF VIAL 100 MCG/2 ML VIAL IVP PRN ×4 (01:39→12:17)
[2019-10-25] MEDS ORDERED: BACITRACIN 50,000 UNIT in IV NORMAL SALINE 1000ML BAG 1,000 ML IRR ONE (06:00)
--- NOTE | 2019-10-25 06:38 | NUR ---
Pt. did well overnight. Painful when ambulating to bathroom and back. Pain meds given prn. Sleeping comfortably currently.
[2019-10-25] MEDS: POTASSIUM CL 20MEQ D5-0.45NACL 1,000 ML IV SCH ×2 (07:24→22:06)
[2019-10-25] MEDS ORDERED: THROMBIN TOPICAL 20,000 UNIT SPRAY.SYRN KIT TP ONE (08:33)
[2019-10-25] MEDS ORDERED: BUPIVACAINE-EPI 0.5%-1:200000 MPF 30 ML VIAL. ONE (08:33)
[2019-10-25] MEDS ORDERED: KETOROLAC 60 MG/2 ML VIAL. ONE (08:33)
[2019-10-25] MEDS ORDERED: GELATIN SPONGE SIZE 100. ONE (08:33)
[2019-10-25] MEDS: NON FORMULARY ITEM (Mirabegron (Myrbetriq) 25 MG) PO SCH (09:00)
[2019-10-25] MEDS: BRIMONIDINE 0.2% OPHTH SOLUTION 5ML BOTTLE. OU SCH ×2 (09:00→22:11)
[2019-10-25] MEDS: hydroCHLOROthiazide 12.5 MG CAPSULE PO SCH (09:00)
[2019-10-25] MEDS: DOCUSATE SODIUM 100 MG CAPSULE. PO SCH ×2 (09:00→22:09)
[2019-10-25] MEDS: DULoxetine HCL 30 MG CAPSULE.DR PO SCH (09:00)
[2019-10-25] MEDS: ARIPiprazole 5 MG TABLET PO SCH (09:00)
[2019-10-25] MEDS: LOSARTAN POTASSIUM 50 MG TABLET. PO SCH (09:00)
[2019-10-25] MEDS: TIMOLOL 0.5% OPHTH SOLUTION 5ML BOTTLE. OU SCH ×2 (09:00→21:00)
[2019-10-25] MEDS: ESTRADIOL 1 MG TABLET. PO SCH (09:00)
--- NOTE | 2019-10-25 11:44 | RAD ---
CT LUMBAR SPINE WO CONTRAST History:Reason: brainlab L2- sacrum for surgery 10/24. Instructions: / History: Technique: Noncontrast CT was performed of the lumbar spine. Multiplanar reconstructions were performed. Exposure: One or more of the following individualized dose reduction techniques were utilized for this examination: 1. Automated exposure control 2. Adjustment of the mA and/or kV according to patient size 3. Use of iterative reconstruction technique. Comparison: October 24, 2019 Findings: Transitional lumbosacral anatomy with lumbarization of S1. L5-S1 is identified on axial series 2 image 175. Postoperative changes right hemilaminectomy and facetectomy L5. There is foci of gas within the operative bed, unchanged. Fluid infiltration of the posterior paraspinal soft tissues at this level. Normal vertebral body height. No fracture. T12-L1: No canal or neuroforaminal narrowing. L1-L2: No canal or neuroforaminal narrowing. L2-L3: Small disc bulge. No canal or neuroforaminal narrowing. L3-L4: Broad-based disc bulge. No canal or neuroforaminal narrowing. L4-L5: Broad-based disc bulge. Moderate facet arthropathy. Bilateral subarticular recess narrowing. Minimal canal narrowing. Ligamentum flavum thickening. No neuroforaminal narrowing. L5-S1: Postoperative changes of the right. Advanced facet arthropathy. Broad-based disc bulge/protrusion contributing to increased moderate to severe canal narrowing. Superimposed right foraminal disc protrusion. Severe right neuroforaminal narrowing. Moderate left neuroforaminal narrowing. Impression: 1. Transitional lumbosacral anatomy . 2. Recent postoperative changes right L5 hemilaminectomy with L5-S1 increased disc bulge/protrusion contributing to increased moderate to severe canal narrowing. 3. Severe right L5-S1 neuroforaminal narrowing, unchanged. Electronically signed by: Hitesh Zamorano DO (10/25/2019 11:41 AM) [id number]
[2019-10-25] MEDS ORDERED: PROPOFOL 50 ML IV ONE ×3 (12:20→16:39)
[2019-10-25] MEDS ORDERED: PROPOFOL 10 MG/ML (20ML) VIAL. IV ONE (12:20)
[2019-10-25] MEDS ORDERED: fentaNYL PF VIAL 100 MCG/2 ML VIAL ONE ×2 (12:21→18:48)
[2019-10-25] MEDS ORDERED: SUCCINYLCHOLINE 200 MG/10 ML VIAL. ONE (12:21)
[2019-10-25] MEDS ORDERED: ROCURONIUM 50 MG/5 ML VIAL. ONE (12:21)
[2019-10-25] MEDS ORDERED: REMIFENTANIL 1 MG VIAL. IV ONE ×3 (12:21→17:11)
[2019-10-25] MEDS ORDERED: PHENYLEPHRINE 10 MG/ML VIAL. ONE (12:22)
[2019-10-25] MEDS ORDERED: DEXAMETHASONE SOD PHOS 4 MG/ML VIAL ONE (12:22)
[2019-10-25] MEDS ORDERED: ONDANSETRON PF 4 MG/2 ML VIAL. ONE (12:22)
[2019-10-25] MEDS ORDERED: fentaNYL PF VIAL 100 MCG/2 ML VIAL IV PRN ×2 (13:00→19:15)
[2019-10-25] MEDS ORDERED: VANCOMYCIN 1GM IVPB FOR OMNI 250 ML IV SCH (13:00)
--- NOTE | 2019-10-25 13:10 | HP ---
ADMIT DATE: 10/24/2019 HISTORY OF PRESENT ILLNESS: The patient is a pleasant 59-year-old woman who had difficulty with back pain as well as pain that would radiate to her right posterolateral thigh. She underwent a lumbar laminectomy of L5-S1 on 10/04. She initially did well and was discharged home from the hospital in good condition. However, since that time, she has had increasing back and right leg pain that was not controlled with pain medication or with oral steroids. She was readmitted for further evaluation and treatment. PAST MEDICAL HISTORY: Arthritis, hypertension, diabetes. PAST SURGICAL HISTORY: D and C as well as lumbar surgery as mentioned above on 10/04. FAMILY HISTORY: Diabetes, heart disease, hypertension, migraine headaches. SOCIAL HISTORY: She is retired. . She denies substance abuse. She smokes. She drinks alcohol 1-2 times per year. ALLERGIES: KEFLEX, SULFA, ERYTHROMYCIN, AND CODEINE. CURRENT MEDICATIONS: See the MRAD. REVIEW OF SYSTEMS: A 12-point review of systems was performed and is noncontributory except that mentioned above. PHYSICAL EXAMINATION: GENERAL: Alert and pleasant. HEAD: Normocephalic, atraumatic. SKIN: Warm and dry. MUSCULOSKELETAL: Lumbar paraspinal bulk is normal, restricted range of motion of the lumbar spine, moderate tenderness of the lower lumbar spine with palpation, normal range of motion of the lower extremities bilaterally. BACK: Well healing lumbar incision. EXTREMITIES: No clubbing, cyanosis or edema. NEUROLOGIC: She is alert and oriented x 3. Her strength is 5/5 in the bilateral lower extremities. Sensory was intact in the lower extremities except for slight decrease in sensation in the right lateral thigh, reflexes are trace and symmetric in the lower extremities bilaterally. IMAGING DATA: I reviewed a lumbar CT scan as well as preoperative imaging. She does have a spondylolisthesis at L5-S1, prior to surgery there was no motion on flexion and extension films. However, when comparing the recent CT scan with the preoperative imaging, it does appear that there is motion at L5-S1. ASSESSMENT AND PLAN: I believe that she has now developed motion at L5-S1. She has failed to improve and has actually worsened postoperatively while at home. I spoke with her about options. We will move forward with an instrumented fusion at L5-S1. I spoke with her about the surgery including the rationale, technique and expected postoperative course as well as the risk. She and her understand and would like to proceed. MATEUS CHOW MD DR: ISAI/saniya JOB#: [id number] / [id number]
[2019-10-25] MEDS: IV RINGERS,LACTATED 1000ML 1,000 ML IV SCH ×2 (13:19→20:52)
--- NOTE | 2019-10-25 13:45 | NUR ---
SS following for discharge planning. SS reviewed pt chart and discussed with pt chart. Pt is from home with spouse and is currently on room air. COVID19 negative. Pt being scheduled for surgery. Transfer up to 4th floor.
[2019-10-25] MEDS ORDERED: 0.9 % SODIUM CHLORIDE 20 ML VIAL. IJ ONE ×2 (15:29→17:12)
[2019-10-25] MEDS ORDERED: ACETAMINOPHEN 325 MG TABLET. PO PRN (15:30)
[2019-10-25] MEDS ORDERED: NALOXONE 0.4 MG/ML VIAL. IV PRN (15:30)
[2019-10-25] MEDS ORDERED: 0.9 % SODIUM CHLORIDE 10 ML DISP.SYRIN. IV PRN (15:30)
[2019-10-25] MEDS ORDERED: MAG HYDROX/ALUMINUM HYD/SIMETH 30 ML ORAL.SUSP PO PRN (15:30)
[2019-10-25] MEDS ORDERED: ALBUTEROL SULFATE 8GM INHALER. INH ONE (15:30)
[2019-10-25] MEDS ORDERED: CALCIUM CARBONATE 500 MG TAB.CHEW PO PRN (15:30)
[2019-10-25] MEDS ORDERED: diphenhydrAMINE HCL 25 MG CAPSULE PO PRN (15:30)
[2019-10-25] MEDS ORDERED: NEOSTIGMINE METHYLSULFATE 5 MG/5 ML SYRINGE. ONE (15:58)
[2019-10-25] MEDS ORDERED: GLYCOPYRROLATE 1 MG/5 ML VIAL. ONE (15:58)
[2019-10-25] MEDS ORDERED: HYDROmorphone 2 MG/ML VIAL ONE (15:59)
[2019-10-25] MEDS ORDERED: SEVOFLURANE > 120 MINUTES. IH ONE (16:29)
[2019-10-25] MEDS: fentaNYL PF VIAL 100 MCG/2 ML VIAL IV PRN ×4 (18:50→18:55)
[2019-10-25] MEDS ORDERED: PROCHLORPERAZINE 10 MG/2 ML VIAL. ONE (19:04)
[2019-10-25] MEDS ORDERED: MORPHINE SULFATE 2 MG/ML VIAL. ONE ×2 (19:04)
[2019-10-25] MEDS: MORPHINE SULFATE 2 MG/ML VIAL. IV PRN ×4 (19:05→19:35)
[2019-10-25] MEDS ORDERED: IV RINGERS,LACTATED 1000ML 1,000 ML IV SCH (19:11)
[2019-10-25] MEDS ORDERED: PROCHLORPERAZINE 10 MG/2 ML VIAL. IV PRN (19:15)
[2019-10-25] MEDS ORDERED: HYDROmorphone 2 MG/ML VIAL IV PRN (19:15)
[2019-10-25] MEDS ORDERED: ONDANSETRON PF 4 MG/2 ML VIAL. IV PRN (19:15)
[2019-10-25] MEDS ORDERED: LIDOCAINE 1% PF 2 ML VIAL. ID PRN (19:15)
[2019-10-25] MEDS ORDERED: INSULIN LISPRO 100 UNIT/ML 3ML VIAL for OP,RR ONLY. SQ PRN (19:45)
--- NOTE | 2019-10-25 20:00 | NUR ---
pt transfered from PACU via bed accompanied by staff alert and oriented pt had lumbar laminectomy instrumented fusion,post lateral fusion ant interbody fusion L5-S1 patient rating pain on lower back as 3 at this time
[2019-10-25] MEDS: SIMVASTATIN 40 MG TABLET. PO SCH (22:06)
[2019-10-25] MEDS: LATANOPROST 0.005% OPHTH SOLUTION 2.5ML BOTTLE. OU SCH (22:45)
[2019-10-26] MEDS ORDERED: VANCOMYCIN 1 GM in IV NORMAL SALINE 250ML 250 ML IV ONE (01:00)
[2019-10-26 02:13] VITALS: BP 154/76
[2019-10-26] MEDS: METHOCARBAMOL 750 MG TABLET PO PRN ×2 (03:14→12:22)
[2019-10-26 07:00] VITALS: BP 112/59
[2019-10-26] MEDS: fentaNYL PF VIAL 100 MCG/2 ML VIAL IVP PRN (07:29)
[2019-10-26] MEDS: oxyCODONE IR 5 MG TABLET PO PRN ×2 (08:22→12:23)
[2019-10-26] MEDS: ESTRADIOL 1 MG TABLET. PO SCH (08:22)
[2019-10-26] MEDS: DOCUSATE SODIUM 100 MG CAPSULE. PO SCH (08:23)
[2019-10-26] MEDS: ARIPiprazole 5 MG TABLET PO SCH (08:23)
[2019-10-26] MEDS: DULoxetine HCL 30 MG CAPSULE.DR PO SCH (08:23)
[2019-10-26] MEDS: hydroCHLOROthiazide 12.5 MG CAPSULE PO SCH (08:30)
[2019-10-26] MEDS: LOSARTAN POTASSIUM 50 MG TABLET. PO SCH (08:30)
[2019-10-26] MEDS: BRIMONIDINE 0.2% OPHTH SOLUTION 5ML BOTTLE. OU SCH (08:39)
[2019-10-26] MEDS: TIMOLOL 0.5% OPHTH SOLUTION 5ML BOTTLE. OU SCH (08:42)
[2019-10-26] MEDS: NON FORMULARY ITEM (Mirabegron (Myrbetriq) 25 MG) PO SCH (09:00)
[2019-10-26] MEDS ORDERED: metFORMIN 500 MG TABLET PO SCH (10:00)
[2019-10-26] MEDS: POTASSIUM CL 20MEQ D5-0.45NACL 1,000 ML IV SCH (11:00)
[2019-10-26 11:25] VITALS: BP 137/61
--- NOTE | 2019-10-26 14:03 | DISCH ---
DISCHARGE INSTRUCTIONS Condition on Discharge Condition on Discharge: Stable Activity After Discharge Activity Instructions for Disc: Activity as tolerated, Avoid exertion, Prog ressive ambulation Other activity instructions: brace on when up Bathing Instructions: No Tub Bath until see Lifting Instructions after Dis: No heavy lifting, No pulling or pushing, Do not lift >10 pounds Driving Instructions after Dis: No driving for 2 weeks Weight Bearing Status after Di: No restrictions Diet after Discharge Diet after Discharge: Diabetic No Calorie Level Additional Diet Restrictions: resume home diet Diet Texture: Regular Liquid Texture: Thin Liquid Wound Incision Care Wound/Incision Care: Ice to area for comfort, Change dressing, May get incision wet Other wound/incision instructi: may remove dressing in 48 hours if dry then may shower, no soaking Wound Care Equipment: Dressings Contacting the [facility] after DC Call your doctor for: Concerns you may have Follow-Up Follow up with: Dr. Chow's nurse in 2 weeks [phone] Treatment/Equipment after DC Adaptive Equipment Issued: None MATEUS CHOW MD Oct 26, 2019 14:03
[2019-10-26] MEDS ORDERED: OXYC5TAB4 PO (14:51)
--- NOTE | 2019-10-26 15:10 | NUR ---
Discharge instructions given. Answered questions and concerns. Verbalized understanding. Got prescription prior to surgery. Extra dressing given. Wearing LSO brace. Pt discharged home accompanied by spouse.
--- NOTE | 2019-10-28 11:07 | PATHOLOGY ---
[facility] Accession Number: [id number] . 01 Material submitted: . vertebral column - LUMBAR DISC AND DECOMPRESSION . 01 Clinical history: . Spondylolisthesis L5-S1 motion; intractable back pain . 02 Diagnosis: Segments of fibrocartilaginous, fibroadipose and skeletal muscle tissue and bone, lumbar disc and decompression: - Degenerative changes of fibrocartilaginous tissue. - Focal edematous granulation tissue showing acute inflammation with adjacent rective fibrosis and chronic inflammation. - Focal mild acute inflammation of segment of bone. (JPM:[facility] 10/27/2019) QTP 10/28/2019 1101 Local . 02 Electronically signed: . Jermaine Joseph MD, Pathologist NPI- [id number] . 01 Gross description: . The specimen is received in formalin, labeled "Zahida Patricio, lumbar disc and decompression". Received are multiple segments of pale hudson, fibrous, gritty material admixed with fragments of bone measuring 4.8 x 4.6 x 0.7 cm in aggregate dimensions. The specimen is submitted representatively in cassette A1, following light decalcification. (CAA; 10/26/2019) QAC/QAC 10/26/2019 1700 Local . 02 Pathologist provided ICD-10: M51.36 . 02 CPT . 887918, [id number] Specimen Comment: A courtesy copy of this report has been sent to [phone], [phone] Specimen Comment: [id number] Specimen Comment: Report sent to / DR THOMAS Performed at: [address] [place] [address] [address], [place], [place] [id number] MD Pedrito Valdovinos MD Phone: [phone] Performed at: [address] [facility] [address] [place], [place] [id number] MD Jermaine Joseph MD Phone: [phone]
--- NOTE | 2019-11-01 20:31 | OP ---
DATE OF SURGERY: 10/25/2019 PREOPERATIVE DIAGNOSES: Spondylolisthesis and foraminal narrowing at L5-S1 with right lumbar radiculopathy. POSTOPERATIVE DIAGNOSES: Spondylolisthesis and foraminal narrowing at L5-S1 with right lumbar radiculopathy. OPERATIONS PERFORMED: 1. Transfacet decompression, right, at L5-S1. 2. Posterior instrumentation at L5-S1. 3. Posterolateral fusion at L5-S1. 4. Microdiskectomy at L5-S1. SPECIAL ASSETS OFFICER: JAYLEEN Kilgore assisted with all aspects of the surgery. The operation also used EMG monitoring, SSEP monitoring, fluoroscopy, microscopic dissection, BrainLAB guidance, stimulated EMG monitoring. OPERATIVE INDICATIONS: The patient is a very pleasant 59-year-old woman who in the recent past underwent lumbar microsurgery to decompress the dura and nerve roots for lumbar spinal stenosis at L5-S1 and did well initially. She did have spondylolisthesis prior to the operation; however, there was no motion on flexion and extension films. For this reason, I have elected not to instrument her at that time. At beginning several days after surgery, she began to develop significant right leg pain, which worsened and on imaging studies, especially when I compared the CT scan and the plain lumbar spine films, she had developed motion of spondylolisthesis at L5-S1 and at this point because of her pain, I have recommended further decompressive work combined with an instrumented lumbar fusion. I spoke with her about the surgery and the risks, she wished to go ahead. DESCRIPTION OF PROCEDURE: Following general endotracheal anesthesia, the patient was positioned prone on the Arun table. Lumbar region prepped and draped in standard fashion. PREET hose and AV impulse boots were applied for DVT prophylaxis. A microscope was draped. Fluoroscopy was draped and brought into the field. Monitoring was established. Vancomycin 1 gram was given less than 1 hour prior to initiation of the surgery. In the left iliac crest, I placed iliac pins, which were then attached to the BrainLAB system and the BrainLAB system was initialized. I then reopened her previous incision and extended it slightly farther superiorly and inferiorly and placed self-retaining retractors after I had exposed the spinous processes and lamina, beginning on the left side, I drilled into the posterior aspect of the pedicle of L5 and S1 using BrainLAB guidance and anatomic landmarks, I also exposed the transverse processes. I passed the black ball, followed by ball tip probe, followed by tap, followed by screw placement using [employer] system at both the L5 and S1 and during this time, I also aspirated 20 mL of bone marrow and mixed this with allograft bone, which was then packed into the left lateral gutter after excoriating the transverse process, lateral facets. This accomplished then, I placed the stan and nuts, but did not torque the system and I moved to the right side. In a similar fashion, I cannulated the pedicles of L5 and S1 without any difficulty. I did excoriate the lateral facets and transverse processes and packed allograft bone into the right lateral gutter. I brought in the microscope and using the high speed air drill, I enlarged the previous hemilaminotomy and worked farther laterally over the transverse process and performed a transforaminal exposure as well as enlarging the hemilaminotomy previously performed. I did enter into the disk space and performed a generous diskectomy. I did consider placing an interbody fusion cage from a TLIF approach; however, her bone quality was such that I was afraid there might be micromotion and the cage would possibly back out. For this reason, a no cage was placed. I could well see the nerve roots, which were very well decompressed. The screws were placed and I did work to reduce her spondylolisthesis and then torqued the system, first on the right side and then on the left side sequentially, so at this point, then I had an excellent decompression combined with posterolateral fusion and instrumentation. I irrigated copiously. Hemostasis was excellent. I closed the wound in layers with absorbable suture and skin was closed with 4-0 subcuticular stitch. I felt the surgery went very well. Fluoroscopic images looked excellent. I was quite pleased with the surgery. MATEUS CHOW MD DR: KEVIN/saniya JOB#: [id number] / [id number]
== END 2019-10-26 15:10 | disposition home or self-care (01) | DRG 460 ==
LOC: 2 SOUTH 17:13 → 4 SOUTHEST 10-25 13:27
PROVIDERS: ADMIT Neurological Surgery; ATTEND Neurological Surgery
PROC: 0SB40ZZ Excision of Lumbosacral Disc, Open Approach (ICD-10-PCS; 2019-10-25)
PROC: 01NB0ZZ Release Lumbar Nerve, Open Approach (ICD-10-PCS; 2019-10-25)
PROC: 01NR0ZZ Release Sacral Nerve, Open Approach (ICD-10-PCS; 2019-10-25)
PROC: 07DR0ZZ Extraction of Iliac Bone Marrow, Open Approach (ICD-10-PCS; 2019-10-25)
PROC: 4A11X4G Monitoring of Peripheral Nervous Electrical Activity, Intraoperative, External Approach (ICD-10-PCS; 2019-10-25)
PROC: 0SG30K1 Fusion of Lumbosacral Joint with Nonautologous Tissue Substitute, Posterior Approach, Posterior Column, Open Approach (ICD-10-PCS; principal; 2019-10-25 13:00)
DX: M43.17 Spondylolisthesis, lumbosacral region (principal); E11.9 Type 2 diabetes mellitus without complications; F17.200 Nicotine dependence, unspecified, uncomplicated; I10 Essential (primary) hypertension; Z82.49 Family history of ischemic heart disease and other diseases of the circulatory system; Z83.3 Family history of diabetes mellitus; M19.90 Unspecified osteoarthritis, unspecified site; M48.061 Spinal stenosis, lumbar region without neurogenic claudication; M54.16 Radiculopathy, lumbar region; M48.07 Spinal stenosis, lumbosacral region; Z20.828 Contact with and (suspected) exposure to other viral communicable diseases; Z88.2 Allergy status to sulfonamides; Z88.8 Allergy status to other drugs, medicaments and biological substances
CPT/HCPCS: 36415; 72131; 76000; 80048; 82962; 85025; 87426; A7015; C1713; J0330; J0780; J1100; J1170; J1815; J1885; J2270; J2370; J2405; J2704; J2710; J3010; J3370; J3480; J3490; J7050; J7120; 97116-GP; 97530-GP; G0378; J7030; U0003-CS

== ENCOUNTER → 2019-10-24 | Outpatient (CLI) | payer BC ==
[2019-10-06 11:02] VITALS: BP 148/56
[~2019-10-24] MED LIST changes: +OXYC5TAB4 PO
--- NOTE | 2019-10-24 09:05 | KCIC ---
EXAM: Lumbar spine CT without contrast. HISTORY: Radiculopathy. TECHNIQUE: Computed tomographic images of the lumbar spine were obtained without contrast. Multiplanar reformatting was performed. *One or more of the following individualized dose reduction techniques were utilized for this examination: 1. Automated exposure control. 2. Adjustment of the mA and/or kV according to patient size. 3. Use of iterative reconstruction technique. COMPARISON: None. FINDINGS: There is a transitional lumbosacral segment. Based on the number of nonrib-bearing vertebral segments, this is considered a partially sacralized L6 segment. The left L6 transverse process is sacralized and articulates with the sacrum. This is a normal variant. There is grade 1 anterolisthesis of L5 on L6, measuring 5 mm. There is no fracture or suspicious osseous lesion. The sacroiliac joints are intact. At L1-L2, L2-L3 and L3-L4, there is no stenosis. At L4-L5, there is a disc bulge. There is mild left greater than right facet arthropathy. There is no stenosis. At L5-L6, there is a suspected broad-based posterior central disc protrusion and right foraminal to extra foraminal disc protrusion superimposed on a disc bulge. There is severe bilateral facet arthropathy. There are right hemilaminotomy changes. There is gas within the laminectomy decompression space due to relative recent surgery. There is grade 1 anterolisthesis. There is severe right and moderate to severe left foraminal stenosis with effacement of the exiting nerve roots. There is mild central canal stenosis. 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 At L6-S1, there is no stenosis. There are suspected partial laminectomy changes superimposed on nonfused posterior elements. IMPRESSION: 1. Transitional lumbosacral segment, considered a partially sacralized L6 segment for this dictation. This is a normal variant. 2. L5-L6: Broad-based posterior central disc protrusion and right foraminal to extra foraminal disc protrusion to proposed on a disc bulge, severe facet arthropathy and grade 1 anterolisthesis. The combination of these findings results in severe right and moderate to severe left foraminal and mild central canal stenosis. There are right hemilaminotomy changes, with gas within the laminectomy decompression space due to relative recent surgery. 3. Mild degenerative change throughout the remainder of the lumbar spine, described above. Electronically signed by: Alee Anderson MD (10/24/2019 9:02 AM) [id number]
== END ==
LOC: KCIC CT 08:19
PROVIDERS: ATTEND Neurological Surgery
DX: M47.26 Other spondylosis with radiculopathy, lumbar region (principal)
CPT/HCPCS: 72131

== ENCOUNTER → 2019-11-01 | Outpatient (CLI) | payer BC ==
[2019-10-26 11:25] VITALS: BP 137/61
[~2019-11-01] MED LIST changes: +OXYC5TAB4 PO
--- NOTE | 2019-11-01 16:20 | KCIC ---
L-spine 3 views INDICATION: Back pain, status post fusion COMPARISON: L-spine x-rays 10/12/2019, L-spine CT 10/25/2019 FINDINGS: Standing lateral, standing AP and standing lateral cone-down views of the lumbar spine were obtained FINDINGS: Lumbarized S1, with 5 lumbar type vertebra above it. Interval posterior lumbar decompression and interbody fusion at L5-S1 with stan and pedicle screw construct. No lucency around the hardware. Stable minimal anterolisthesis of L5 on S1 of no more than 2 mm. Lumbar spinal alignment otherwise anatomic. No fracture or aggressive appearing osseous lesions. Arterial calcifications in abdominal aorta noted. IMPRESSION: Near-anatomic alignment status post posterior lumbar interbody fusion at L5-S1 with stable grade 1 anterolisthesis of L5 on S1. There has also been interval posterior decompression of S1. No fracture or aggressive osseous lesions. Electronically signed by: Danilo Villatoro MD (11/01/2019 4:17 PM) [id number]
== END | disposition home or self-care (01) ==
LOC: KCIC 11:17
PROVIDERS: ATTEND Neurological Surgery
DX: M43.17 Spondylolisthesis, lumbosacral region (principal); M43.26 Fusion of spine, lumbar region; I70.0 Atherosclerosis of aorta
CPT/HCPCS: 72100

== ENCOUNTER → 2020-01-16 | Outpatient (CLI) | payer BC ==
--- NOTE | 2020-01-16 17:17 | KCIC ---
Two view lumbar spine radiographs 01/16/2020 CLINICAL HISTORY: Lumbar fusion. Standing AP and lateral digital radiographs of the lumbar spine were obtained. Comparison study is dated 11/01/2019. S1 is again noted to be lumbarized. The patient is post posterolateral fusion using pedicle screws and stabilizing rods at L5-S1 and appears to be post right hemilaminotomy at this level. Mild anterolisthesis of L5 in relation to S1 is again seen. This finding is unchanged. Degenerative changes consisting of disc space narrowing, vertebral endplate sclerosis and degenerative changes involving the facet joints are seen prominently at L5-S1. No fracture or subluxation is seen. Atherosclerotic calcification of the abdominal aorta and its branches is noted. IMPRESSION: Post fusion at L5-S1. Mild anterolisthesis of L5 in relation S1 is unchanged. No acute osseous abnormality is seen. Electronically signed by: Victorino Nunes MD (01/16/2020 5:14 PM) [id number]
== END ==
LOC: KCIC 14:33
PROVIDERS: ATTEND Neurological Surgery
DX: M47.817 Spondylosis without myelopathy or radiculopathy, lumbosacral region (principal); M43.17 Spondylolisthesis, lumbosacral region; I70.0 Atherosclerosis of aorta; Z98.1 Arthrodesis status; Z98.890 Other specified postprocedural states
CPT/HCPCS: 72100

== ENCOUNTER → 2020-02-06 | Outpatient (CLI) | payer BC ==
--- NOTE | 2020-02-06 13:46 | KCIC ---
EXAM: DUAL ENERGY X-RAY ABSORPTIOMETRY (DEXA). HISTORY: Postmenopausal screening. FINDINGS: The lowest measured T-score is -1.2 in the left hip, based on a bone mineral density of 0.790 g/cm^2. Refer to the worksheets for full detail. No comparison examinations are available. IMPRESSION: Low bone mass. Bone mineral density yields a T-score between -1.0 and -2.5. Fracture risk is increased. METHODOLOGY: Dual energy x-ray absorptiometry was performed to measure bone mineral density. The following analysis is based on the 2019 Official Positions of the International Society for Clinical Densitometry: Measurements of the hips and the average of L1-L4 are preferred. When the spine and/or hip cannot be feasibly measured or interpreted, or in the setting of hyperparathyroidism, distal radial bone mineral density may be measured. The lumbar spine T-score is based on the average bone mineral density of L1-L4. In the setting of artifact or anatomic abnormality, some lumbar levels may be excluded, and the remaining levels used for calculation. A single lumbar level is not used for diagnosis, and if only a single level is available for assessment, another anatomic site will be used to assign a diagnosis. The hip T-score is based on the bone mineral density measurement of the femoral neck or total proximal femur of either side, whichever is lowest. Bilateral mean values are not used for diagnosis. The forearm T-score is derived from 33% of the distal radius of the nondominant forearm. Electronically signed by: Alee Anderson MD (02/06/2020 1:42 PM) [id number]
== END ==
LOC: KCIC DEXA 13:13
PROVIDERS: ATTEND Family Medicine
DX: M81.0 Age-related osteoporosis without current pathological fracture (principal)
CPT/HCPCS: 77080

== ENCOUNTER → 2020-08-27 | Outpatient (CLI) | payer BC ==
[~2020-08-27] MED LIST changes: +METH-562 PO; -METH750T2 PO
--- NOTE | 2020-08-27 15:01 | KCIC ---
3 views left foot without comparison for mid left foot pain couple of months ago. FINDINGS: There is no fracture, dislocation, or acute osseous abnormality identified. Joints and soft tissues are grossly unremarkable. No radiopaque foreign bodies. No significant degenerative changes. IMPRESSION: 1. No acute osseous abnormality. Electronically signed by: Kyle Landon MD (08/27/2020 2:59 PM) [id number]
== END ==
LOC: KCIC 12:23
PROVIDERS: ATTEND Family Medicine
DX: M25.572 Pain in left ankle and joints of left foot (principal)
CPT/HCPCS: 73630